=== PATIENT | female | born 1990 | race Caucasian/White ===

== ENCOUNTER 2024-11-28 11:50 | Emergency (ER) | payer OTHER ==
[2024-11-28 11:52] VITALS: BP 136/68; TEMP 97.2; O2SAT 99
[2024-11-28] MEDS ORDERED: PROM50TA4 PO (11:59)
[2024-11-28] MEDS: ONDANSETRON 4MG ORAL DISINTEGRATING TAB PO ONE (12:08)
[2024-11-28 12:28] LABS: BASO % 0.3 % (0.0-1.0); EOS % 0.1 % (0.0-3.0); HEMATOCRIT 33.8 % (36.0-47.0); HEMOGLOBIN 11.7 g/dl (12.0-15.5); LYMPH # 0.8 10^3/uL (1.5-5.0); LYMPH % 5.2 % (24.0-44.0); MEAN CORPUSCULAR HEMOGLOBIN 32.5 pg (27.0-33.0); MEAN CORPUSCULAR HGB CONC 34.6 g/dl (32.0-36.5); MEAN CORPUSCULAR VOLUME 93.9 fl (80.0-96.0); MONO # 0.3 10^3/uL (0.0-0.8); MONO % 2.3 % (2.0-8.0); NEUTROPHILS # 13.1 10^3/uL (1.5-8.5); NEUTROPHILS % 91.2 % (36.0-66.0); PLATELET COUNT, AUTOMATED 368 10^3/uL (150-450); WHITE BLOOD COUNT 14.3 10^3/uL (4.0-10.0)
[2024-11-28] MEDS: CAPSAICIN 0.025% CR 60 GM TOP ONE (12:50)
[2024-11-28] MEDS: PANTOPRAZOLE 40MG VIAL IV ONE (12:50)
[2024-11-28] MEDS: MORPHINE 2 MG/ML 1ML VIAL IV ONE (12:50)
[2024-11-28 12:53] LABS: LIPASE 30 U/L (12-53)
[2024-11-28 12:55] LABS: ALBUMIN 3.3 G/DL (3.2-5.2); ALKALINE PHOSPHATASE 55 U/L (35-104); ALT/SGPT 36 U/L (7.0-40); AST/SGOT 39 U/L (<34); BILIRUBIN,DIRECT 0.1 MG/DL (<0.4); BILIRUBIN,TOTAL 0.5 MG/DL (0.3-1.2); BLOOD UREA NITROGEN 9 MG/DL (9-23); CALCIUM LEVEL 8.8 MG/DL (8.5-10.1); CARBON DIOXIDE LEVEL 20 MMOL/L (20-31); CHLORIDE LEVEL 108 MMOL/L (98-107); CREATININE FOR GFR 0.42 MG/DL (0.55-1.30); GLOMERULAR FILTRATION RATE > 60.0 (>60); GLUCOSE, FASTING 110 MG/DL (60-100); POTASSIUM SERUM 3.7 MMOL/L (3.5-5.1); SODIUM LEVEL 140 MMOL/L (136-145); TOTAL PROTEIN 6.9 G/DL (5.7-8.2)
[2024-11-28] MEDS: PROMETHAZINE 25MG/ML 1ML VIAL IV ONE (13:00)
[2024-11-28 13:13] LABS: HCG, SERUM QUANTITATIVE 25173.3 MIU/ML (<4.2)
[2024-11-28] MEDS: ACETAMINOPHEN *IV* 1,000 MG in IV 1 EA IV ONE (13:15)
[2024-11-28] MEDS ORDERED: ONDA-282 PO (15:24)
== END 2024-11-28 15:34 | disposition home or self-care (01) ==
LOC: M ED 11:50
DX: O21.9 Vomiting of pregnancy, unspecified (principal); Z3A.15 15 weeks gestation of pregnancy; O99.321 Drug use complicating pregnancy, first trimester; F12.10 Cannabis abuse, uncomplicated; Z79.899 Other long term (current) drug therapy
CPT/HCPCS: 76815; 80048; 80076; 83690; 84702; 85025; 87486; 87581; 87633; 87798; 96374; 96375; 99284; J0131; J2470; J2550